=== PATIENT | male | born 1940 | race Caucasian/White ===

== ENCOUNTER 2017-08-05 09:30 | Inpatient (IN) ==
--- NOTE | 2017-08-05 09:39 | Emergency Department Note ---
Disposition Referrals: Abdiel Larsen DO [Primary Care Provider] - SOB HPI - General Chief Complaint: ED Shortness of Breath/Dyspnea Stated Complaint: Shortness of Breath Time Seen by Provider: 08/05/17 09:35 Source: patient Limitations: no limitations Nursing Notes Reviewed: Yes Vital Signs Reviewed: Yes - Related Data Home Medications Medication Instructions Recorded Confirmed Aspirin 81 mg PO DAILY 02/25/16 05/21/16 FLUoxetine HCl [Prozac] 40 mg PO QAM 02/25/16 05/21/16 Gabapentin [Neurontin] 800 mg PO BID 02/25/16 05/21/16 HYDROcodone/Acet 10/325 mg [[place] 1 tab PO Q6HR PRN 02/25/16 05/21/16 10-325 mg] Iron Polysaccharide Complex [Pro 180 mg PO DAILY 02/25/16 05/21/16 Fe] Metformin HCl [Glucophage] 1,000 mg PO BID 02/25/16 05/21/16 Pravastatin Sodium [Pravachol] 80 mg PO QPM 02/25/16 05/21/16 Ticagrelor [Brilinta] 90 mg PO BID 02/25/16 05/21/16 Vit C/Vit E AC/Lut/Copper/Zinc 1 cap PO DAILY 02/25/16 05/21/16 [Preservision Lutein Softgel] Previous Rx's Medication Instructions Recorded Ramipril [Altace] 10 mg PO BID #60 capsule 05/22/16 Allergies Allergy/AdvReac Type Severity Reaction Status Date / Time Sulfa (Sulfonamide AdvReac Hives Verified 05/21/16 12:03 Antibiotics) IV Dye AdvReac Seizure Uncoded 05/21/16 12:03 Past Medical History - Past Medical History Medical history: Reports: cancer, coronary artery disease, diabetes, GERD, hyperlipidemia, hypertension, myocardial infarction Surgical history: Reports: herniorrhaphy, other Psychiatric history: Reports: anxiety, depression - Social History Smoking Status: Former smoker Smokeless Tobacco Status: No Alcohol use: Reports: none Drug use: Reports: none Physical Exam - General Limitations: no limitations General appearance: alert Course Vital Signs Temperature 97.9 F 08/05/17 09:31 Pulse Rate 89 08/05/17 09:31 Respiratory Rate 18 08/05/17 09:31 Blood Pressure 174/106 02/11/18 09:31 O2 Sat by Pulse Oximetry 97 08/05/17 09:31 Temperature 97.9 F 08/05/17 09:31 Pulse Rate 89 08/05/17 09:31 Respiratory Rate 18 08/05/17 09:31 Blood Pressure 174/106 08/05/17 09:31 O2 Sat by Pulse Oximetry 97 08/05/17 09:31 Oxygen Delivery Oxygen Delivery Room Air
[2017-08-05] MEDS ORDERED: 0.9 % Sodium Chloride 1,000 ML IVC ONE ×2 (09:49→11:52)
[2017-08-05] MEDS ORDERED: *HR* OxyCODONE Immed Rel 5 MG TABLET PO ONE (09:51)
[2017-08-05 10:05] LABS: Basophils # 0.1 K/mcL (0.0-0.2); Basophils % 1.1 %; Eosinophils # 0.2 K/mcL (0.0-0.6); Eosinophils % 2.4 %; Hematocrit 38.3 % (37.5-50.1); Hemoglobin 12.6 g/dL (12.9-16.9); Immature Granulocytes % 0.3 % (0-4); Lymphocytes # 1.2 K/mcL (0.6-4.6); Lymphocytes % 18.3 %; Mean Corpuscular HGB Conc 32.9 g/dL (31.6-35.5); Mean Corpuscular Hemoglobin 29.6 pg (28.0-33.3); Mean Corpuscular Volume 89.9 fL (83.0-100.0); Mean Platelet Volume 11.1 fL (9.4-12.4); Monocytes # 0.5 K/mcL (0.0-1.3); Monocytes % 7.6 %; Neutrophils # 4.6 K/mcL (1.6-8.9); Platelet Count 229 K/mcL (140-400); Red Blood Count 4.26 M/mcL (4.19-5.50); Red Cell Distribution Width 12.9 % (11.5-14.5); Segmented Neutrophils % 70.3 %
--- NOTE | 2017-08-05 10:08 | Emergency Department Note ---
Disposition Clinical Impression: Dyspnea, unspecified, Colonic stricture, Elevated blood pressure reading Abdominal pain Qualifiers: Abdominal location: left lower quadrant Qualified Code(s): R10.32 - Left lower quadrant pain Disposition: Admitted As Inpatient Condition: Undetermined Time of Disposition: 21:59 Abdominal Pain HPI - General Chief Complaint: ED Shortness of Breath/Dyspnea Stated Complaint: Shortness of Breath Time Seen by Provider: 08/05/17 09:35 Source: patient Mode of arrival: wheelchair Limitations: no limitations Nursing Notes Reviewed: Yes Vital Signs Reviewed: Yes - History of Present Illness HPI Narrative: Mr. Ladd, a 77yo male, presents from home for evaluation of left lower quadrant abdominal pain with shortness of breath. Onset last night at 10pm. Described as a constant cramping sensation. Non-radiating. He has associated bloating sensation, is passing increased flatus, and has shortness of breath. Dyspnea improved with standing, worse with deep inspiration. On deep inspiration, he has a substernal burning sensation. No hx abdominal surgery. Cardiac hx: stent x4. Last stent/cath appx 2-3 yrs ago. HTN, HLD, DM, hx smoking - quit 2 yrs ago. Seed Expert: name unknown to patient, @ [facility]. ROS: Pos: as above Neg: fever, chills, nausea, vomiting, constipation, diarrhea, hematochezia, melena. Pain Scale: 5 - Related Data Home Medications Medication Instructions Recorded Confirmed Aspirin 81 mg PO DAILY 02/25/16 08/05/17 FLUoxetine HCl [Prozac] 40 mg PO QAM 02/25/16 08/05/17 Gabapentin [Neurontin] 800 mg PO BID 02/25/16 08/05/17 HYDROcodone/Acet 10/325 mg [[place] 1 tab PO Q6HR PRN 02/25/16 08/05/17 10-325 mg] Iron Polysaccharide Complex [Pro 180 mg PO DAILY 02/25/16 08/05/17 Fe] Metformin HCl [Glucophage] 1,000 mg PO BID 02/25/16 08/05/17 Pravastatin Sodium [Pravachol] 80 mg PO QPM 02/25/16 08/05/17 Ticagrelor [Brilinta] 90 mg PO BID 02/25/16 08/05/17 Vit C/Vit E AC/Lut/Copper/Zinc 1 cap PO DAILY 02/25/16 08/05/17 [Preservision Lutein Softgel] Bupropion HCl [Wellbutrin Xl] 300 mg PO DAILY 08/05/17 08/05/17 Previous Rx's Medication Instructions Recorded Ramipril [Altace] 10 mg PO BID #60 capsule 05/22/16 Allergies Allergy/AdvReac Type Severity Reaction Status Date / Time Sulfa (Sulfonamide AdvReac Hives Verified 05/21/16 12:03 Antibiotics) IV Dye AdvReac Seizure Uncoded 05/21/16 12:03 All systems ED: reviewed and negative except as stated. Review of Systems: As Per HPI Abdominal Pain PMH - Past Medical History Medical history: Reports: cancer, coronary artery disease, diabetes, GERD, hyperlipidemia, hypertension, myocardial infarction Psychiatric history: Reports: anxiety, depression - Social History Smoking status: Former smoker Alcohol use: Reports: none Drug use: Reports: none Physical Exam Vital Signs Reviewed General: Patient is alert, oriented, and in mild distress-prefers standing position to seated or reclined. Head: atraumatic, normocephalic Eye: normal appearance, PERRL, EOMI, no scleral icterus, no conjunctival injection ENT: mucous membranes moist, normal external ear exam Neck: normal inspection, trachea midline, full ROM Chest: normal inspection, symmetric chest rise Respiratory: Good respiratory effort. Bilateral breath sounds are clear without wheezing, crackles, or rhonchi. Cardiovascular: Regular rate and rhythm. No clicks, rubs, gallops, or murmors. Normal heart sounds. Abdomen: Bowel sounds present, hyperactive, high pitched. Abdomen is soft, distended. Left side abdominal tenderness. No guarding or rebound. Musculoskeletal: Spontaneously moving all extremities. Skin: warm, dry, intact. Neuro: Alert and oriented x4. Sensation light touch intact. Psych: Patient's affect is appropriate for situation. - General Limitations: no limitations General appearance: alert Course Course Narrative: Patient's abdomen is distended with high-pitched bowel sounds. He is passing gas. Believe his abdominal distention is causing dyspnea unless standing. Will perform chest pain and abdominal workup. Patient does have only shown blood pressure on intake. Is no focal neurologic deficits, no headache. EKG shows no acute ischemic changes. Initial troponin is less than upper limit of normal. Chest x-ray shows no cardiopulmonary disease per radiology read. Urinalysis is unremarkable. No evidence of end organ damage. Patient has no leukocytosis and is afebrile intake. Very mild hyponatremia otherwise electrolytes are unremarkable. Normal renal function. No elevation in hepatic, biliary, or pancreatic enzymes. Patient has no elevation in lactic acid. CT abdomen and pelvis show focal colonic stricture likely causing his colonic distention. No small bowel obstruction. I discussed the above with the admitting hospitalist who agrees to accept the patient for further evaluation and management with consult to gastroenterology. Abdomen/Pelvis CT 08/05/17 09:50 IMPRESSION: 1. No radiographic findings to suggest presence of significant small bowel obstruction. 2. Focal area of luminal narrowing of the distal colon in the rectosigmoid region. Finding may be artifactual associated with incomplete distention of the colon however a focal stricture in this region resulting in moderate-marked distention of the colon proximal to this area cannot be excluded based on this examination. I PICC enema may be helpful for more complete evaluation. 3. Prominent fecal loading of the rectal vault. 4. Nonspecific moderate gaseous distention of the stomach as described above. D/ / 08/05/2017 11:57:21 Eren Osullivan MD / joe Interpreting Provider: Eren Osullivan MD Chest X-Ray 08/05/17 11:14 IMPRESSION: 1. No acute cardiopulmonary disease. 2. Basilar atelectasis. D/ / 08/05/2017 12:29:20 Kimberley Dias MD / reji Interpreting Provider: Kimberley Dias MD Vital Signs Temperature 97.9 F 08/05/17 09:31 Pulse Rate 89 08/05/17 09:31 Respiratory Rate 18 08/05/17 09:31 Blood Pressure 174/106 08/05/17 09:31 O2 Sat by Pulse Oximetry 97 08/05/17 09:31 Temperature 97.5 F L 08/05/17 19:48 Pulse Rate 76 08/05/17 19:48 Respiratory Rate 16 08/05/17 19:48 Blood Pressure 175/89 08/05/17 19:48 O2 Sat by Pulse Oximetry 95 08/05/17 19:48 Oxygen Delivery Oxygen Delivery Room Air Abdominal Pain - Medical Records Medical records reviewed: Yes I reviewed the patient's medical records. - Lab Data Lab results reviewed: Yes I reviewed the patient's lab results. Result diagrams: 08/05/17 09:57 08/05/17 09:57 Lab Results 08/05/17 08/05/17 08/05/17 Range/Units 09:57 09:57 09:57 WBC 6.6 (4.3-11.1) K/mcL RBC 4.26 (4.19-5.50) M/mcL Hgb 12.6 L (12.9-16.9) g/dL Hct 38.3 (37.5-50.1) % MCV 89.9 (83.0-100.0) fL MCH 29.6 (28.0-33.3) pg MCHC 32.9 (31.6-35.5) g/dL RDW 12.9 (11.5-14.5) % Plt Count 229 (140-400) K/mcL MPV 11.1 (9.4-12.4) fL Immature Gran % 0.3 (0-4) % Seg Neutrophils % 70.3 % Lymphocytes % 18.3 % Monocytes % 7.6 % Eosinophils % 2.4 % Basophils % 1.1 % Neutrophils # 4.6 (1.6-8.9) K/mcL Lymphocytes # 1.2 (0.6-4.6) K/mcL Monocytes # 0.5 (0.0-1.3) K/mcL Eosinophils # 0.2 (0.0-0.6) K/mcL Basophils # 0.1 (0.0-0.2) K/mcL Sodium 135 L (136-145) mEq/L Potassium 4.4 (3.5-5.1) mEq/L Chloride 101 (98-107) mEq/L Carbon Dioxide 25 (23-29) mEq/L BUN 18 (8-23) mg/dL Creatinine 0.84 (0.70-1.30) mg/dL Est GFR ( Amer) > 60 (> 60) Est GFR (Non-Af Amer) > 60 (> 60) BUN/Creatinine Ratio 21 (6-26) Glucose 240 H (70-105) mg/dL Calculated Osmolality 290 (280-300) Lactic Acid 2.7 H (0.5-2.2) mmol/L Calcium 10.5 H (8.6-10.3) mg/dL Total Bilirubin 0.3 (0.3-1.0) mg/dL Direct Bilirubin 0.0 (0.0-0.2) mg/dL Indirect Bilirubin 0.3 (0.0-1.2) mg/dL AST 21 (13-39) Units/L ALT 30 (7-52) Units/L Alkaline Phosphatase 73 (34-104) Units/L Troponin I (< 0.04) ng/mL Serum Total Protein 7.1 (6.4-8.9) g/dL Albumin 4.4 (3.5-5.7) g/dL Globulin 2.7 (2.4-3.5) g/dL Albumin/Globulin Ratio 1.6 (1.1-2.2) Lipase 31 (11-82) Units/L Urine Color (Yellow) Urine Clarity (Clear) Urine pH (5.0-8.0) pH Units Ur Specific [place] (1.010-1.025) Urine Protein (Neg-Trace) mg/dL Urine Glucose (UA) (Normal) mg/dL Urine Ketones (Negative) mg/dL Urine Blood (Negative) Urine Nitrite (Negative) Urine Bilirubin (Negative) Urine Urobilinogen (Normal) mg/dL Ur Leukocyte Esterase (Negative) Ur Culture Indicated? (NO) 08/05/17 08/05/17 Range/Units 09:57 11:04 WBC (4.3-11.1) K/mcL RBC (4.19-5.50) M/mcL Hgb (12.9-16.9) g/dL Hct (37.5-50.1) % MCV (83.0-100.0) fL MCH (28.0-33.3) pg MCHC (31.6-35.5) g/dL RDW (11.5-14.5) % Plt Count (140-400) K/mcL MPV (9.4-12.4) fL Immature Gran % (0-4) % Seg Neutrophils % % Lymphocytes % % Monocytes % % Eosinophils % % Basophils % % Neutrophils # (1.6-8.9) K/mcL Lymphocytes # (0.6-4.6) K/mcL Monocytes # (0.0-1.3) K/mcL Eosinophils # (0.0-0.6) K/mcL Basophils # (0.0-0.2) K/mcL Sodium (136-145) mEq/L Potassium (3.5-5.1) mEq/L Chloride (98-107) mEq/L Carbon Dioxide (23-29) mEq/L BUN (8-23) mg/dL Creatinine (0.70-1.30) mg/dL Est GFR ( Amer) (> 60) Est GFR (Non-Af Amer) (> 60) BUN/Creatinine Ratio (6-26) Glucose (70-105) mg/dL Calculated Osmolality (280-300) Lactic Acid (0.5-2.2) mmol/L Calcium (8.6-10.3) mg/dL Total Bilirubin (0.3-1.0) mg/dL Direct Bilirubin (0.0-0.2) mg/dL Indirect Bilirubin (0.0-1.2) mg/dL AST (13-39) Units/L ALT (7-52) Units/L Alkaline Phosphatase (34-104) Units/L Troponin I < 0.03 (< 0.04) ng/mL Serum Total Protein (6.4-8.9) g/dL Albumin (3.5-5.7) g/dL Globulin (2.4-3.5) g/dL Albumin/Globulin Ratio (1.1-2.2) Lipase (11-82) Units/L Urine Color Yellow (Yellow) Urine Clarity Clear (Clear) Urine pH 7.0 (5.0-8.0) pH Units Ur Specific [place] 1.020 (1.010-1.025) Urine Protein Negative (Neg-Trace) mg/dL Urine Glucose (UA) 100 H (Normal) mg/dL Urine Ketones Negative (Negative) mg/dL Urine Blood Negative (Negative) Urine Nitrite Negative (Negative) Urine Bilirubin Negative (Negative) Urine Urobilinogen Normal (Normal) mg/dL Ur Leukocyte Esterase Negative (Negative) Ur Culture Indicated? NO (NO) - Radiology Data Radiology results reviewed: Yes I reviewed the patient's radiology results. - EKG Data EKG attestation: Yes I reviewed and interpreted this EKG. EKG results narrative: EKG dated 08/05/17 at 09:54 interpreted as sinus rhythm with rate of 77. Respiratory variation. Normal axis. Nonspecific ST-T changes. Compared to previous dated 05/17/2016 showing no acute ischemic changes or comparison. Attestation Statement - Attestation Attestation: I examined this patient and my medical decision-making was reviewed with the Resident Physician, Dr. Merino. I agree with the documented findings, disposition and treatment plan as described except to the extent set forth below. This pleasant 77-year-old white male who presents to the emergency department with a few complaints today. Patient states he has been feeling short of breath for the past 2-3 days worse with exertion. Patient denies any fevers or chills, no upper respiratory symptoms sore throat or cough, no lower extremity edema, no chest pain pressure or heaviness. Patient states that he is also here for gradually worsening left lower quadrant abdominal pain that began last night. Patient states the pain is very sharp in character and is been waxing and waning in severity but consistently in the left lower quadrant area. Patient denies any nausea or vomiting associated with this pain, no flank pain or urinary symptoms, no groin pain or testicular pain. Patient's not had any fevers or chills or any other associated symptoms with this pain. Patient rates the pain on arrival at an 8 out of 10 in severity. I agree with patient's physical exam findings as documented. Patient with elevated blood pressure on arrival. Patient's EKG does not show any acute ischemia today is normal sinus rhythm unchanged from prior EKG. Patient's lab evaluations within normal limits including troponin. Patient went for CT abdomen and pelvis without contrast which shows findings of a new colonic stricture in the distal colon with evidence of constipation beyond the stricture. Patient's chest x-ray is unremarkable. At this time would like to admit the patient for further evaluation of 1. His abdominal pain and new colonic stricture and be seen by GI. #2 considering his extensive coronary artery disease and symptoms of dyspnea we feel he would benefit from serial enzymes and ongoing observation. Case was discussed with the hospitalist who accepted patient for admission for further evaluation and management.
[2017-08-05 10:20] LABS: Alanine Aminotransferase 30 Units/L (7-52); Albumin 4.4 g/dL (3.5-5.7); Albumin/Globulin Ratio 1.6 (1.1-2.2); Alkaline Phosphatase 73 Units/L (34-104); Aspartate Amino Transferase 21 Units/L (13-39); BUN/Creatinine Ratio 21 (6-26); Bilirubin,Indirect 0.3 mg/dL (0.0-1.2); Bilirubin,Total 0.3 mg/dL (0.3-1.0); Blood Urea Nitrogen 18 mg/dL (8-23); Calcium 10.5 mg/dL (8.6-10.3); Carbon Dioxide 25 mEq/L (23-29); Chloride 101 mEq/L (98-107); Globulin 2.7 g/dL (2.4-3.5); Glucose 240 mg/dL (70-105); Lipase 31 Units/L (11-82); Osmolality,Calculated 290 (280-300); Potassium 4.4 mEq/L (3.5-5.1); Sodium 135 mEq/L (136-145); Total Protein 7.1 g/dL (6.4-8.9); eGFR For African Americans > 60 (> 60); eGFR For Non-African Americans > 60 (> 60)
[2017-08-05 11:14] LABS: Bilirubin,Urine Negative (Negative); Blood,Urine Negative (Negative); Clarity,Urine Clear (Clear); Color,Urine Yellow (Yellow); Glucose,Urine (UA) 100 mg/dL (Normal); Ketones,Urine Negative (Negative); Leukocyte Esterase,Urine Negative (Negative); Nitrite,Urine Negative (Negative); Protein,Urine Negative (Neg-Trace); Urobilinogen,Urine Normal (Normal)
[2017-08-05] MEDS ORDERED: Dextrose Gel 15 GM/37.5 ML TUBE PO PRN ×2 (13:29)
[2017-08-05] MEDS ORDERED: *HR* Dextrose 50 % in Water (Syg) 50 ML SYRINGE IVP PRN (13:29)
[2017-08-05] MEDS ORDERED: D5% in Water 1,000 ML IVC PRN (13:29)
[2017-08-05] MEDS ORDERED: Ketorolac 15 MG/ML VIAL IVP PRN (13:35)
--- NOTE | 2017-08-05 13:48 | Internal Med History&Physical ---
Date of Encounter: 08/05/17 Time of Encounter: 12:55 Assessment and Plan (1) SOB (shortness of breath) on exertion Current visit: Yes Status: Acute 2-3 weeks of SOB and orthopnea. He has CAD s/p stents and states this is how he presented prior to stents (no chest pain). Supplemental O2 as needed CXR clear No wheezing, cough or pulm. vasc. congestion Trend Zainab Continue telemety (2) CAD (coronary artery disease) Current visit: No Status: Chronic Trend CE First Troponin wnl No ischemic changes on ECG Telemetry Continue aspirin and Brillinta Qualifiers: Coronary Disease-Associated Artery/Lesion type: [place] artery [place] vs. transplanted heart: [place] heart Associated angina: without angina Qualified Code(s): I25.10 - Atherosclerotic heart disease of [place] coronary artery without angina pectoris (3) Abdominal pain Current visit: Yes Status: Acute LLQ pain correlates with area on CT-Abd/Pelvis study showing narrowing Consulted GI for scope (Tried to call but no consults on wkend...needs called in am) Keep NPO Fentanyl and Toradol for pain C Qualifiers: Abdominal location: left lower quadrant Qualified Code(s): R10.32 - Left lower quadrant pain (4) Diabetes mellitus Current visit: No Status: Chronic Hold Metformin and start LD-SSI with Humalog Qualifiers: Diabetes mellitus type: type 2 Diabetes mellitus complication status: without complication Diabetes mellitus terminal press operator insulin use: without terminal press operator use Qualified Code(s): E11.9 - Type 2 diabetes mellitus without complications Internal Medicine - H&P: HPI Chief complaint: LLQ abdominal pain and SOB Admitted From: Emergency Dept Plans for Post Hospital Care: Home History of present illness: 77yo male ptient who presented in the ER c/o LLQ abdominal pain which began last evening. He also c/o worsening orthopnia and sob with exertion for approximately 2-3 weeks. He denies cough, F/C, chest pain or pressure. He has CAD s/p stents and states that when his stents were placed he experienced similar sob and orthopnea but not chest pain. His ECG does not show ischemic changes and his initial troponin is wnl. His CXR does not show infiltrates or pleural, effusions or signs of CHF. However he does have bibasilar atelectasis. His CT-Abd/Pelvis study done without IV or oral contrast showes a narrowing of the distal bowel near the rectosigmoid junction without signs of obvious obst. There is distention of the bowel proximal to the narrowing. Since the study was done w/o contrast (oral or IV0 artifact can not be r/o. His symptoms correlate with the area of narrowing. He moved his bowels this am and again in the ER. His LA is elevated (2.7) but his sx do not raise concern for ischemic bowel. He has no peritoneal signs on exam but his BS are decreased and high pitched. He's hemodynamically stable and afebrile with a normal WBC. f Past Med Surg Social Fam HX - Past Medical History Medical history: cancer, coronary artery disease, diabetes, GERD, hyperlipidemia , hypertension, myocardial infarction Psychiatric history: anxiety, depression - Past Surgical History Surgical History: herniorrhaphy, other - Social History Smoking Status: Former smoker Smokeless Tobacco Status: No Alcohol use: none Drug use: none - Family History Father Living Status: Hx Family Cardiac Disorders: Yes ([place]) Internal Medicine - H&P: Meds Aspirin 81 mg PO DAILY 02/25/16 [History] FLUoxetine HCl [Prozac] 40 mg PO QAM 02/25/16 [History] Gabapentin [Neurontin] 800 mg PO BID 02/25/16 [History] HYDROcodone/Acet 10/325 mg [[place] 10-325 mg] 1 tab PO Q6HR PRN 02/25/16 [History ] Iron Polysaccharide Complex [Pro Fe] 180 mg PO DAILY 02/25/16 [History] Metformin HCl [Glucophage] 1,000 mg PO BID 02/25/16 [History] Pravastatin Sodium [Pravachol] 80 mg PO QPM 02/25/16 [History] Ticagrelor [Brilinta] 90 mg PO BID 02/25/16 [History] Vit C/Vit E AC/Lut/Copper/Zinc [Preservision Lutein Softgel] 1 cap PO DAILY 08/10 [History] Ramipril [Altace] 10 mg PO BID #60 capsule 05/22/16 [Rx] Bupropion HCl [Wellbutrin Xl] 300 mg PO DAILY 08/05/17 [History] 3 Allergy/AdvReac Type Severity Reaction Status Date / Time Sulfa (Sulfonamide AdvReac Hives Verified 05/21/16 12:03 Antibiotics) IV Dye AdvReac Seizure Uncoded 05/21/16 12:03 All Systems PM: A 10-system review of systems was performed and is negative for pertinent findings except as documented above in the HPI. - Constitutional Constitutional: no chills, no fever(s), no night sweats, no weakness, no weight gain, no weight loss - EENT Nose, mouth and throat: no dry mouth, no dysphagia, no epistaxis, no facial pain - Cardiovascular Cardiovascular ROS IM: dyspnea, dyspnea on exertion, orthopnea, paroxysmal nocturnal dyspnea, no chest pain, no diaphoresis, no syncope - Musculoskeletal Musculoskeletal ROS IM: no atrophy, no back pain, no joint swelling, no muscle cramps, no stiffness - Integumentary Integumentary IM: no erythema, no rash, no skin ulcer, no unusual bruising, no jaundice - Neurological Neurological ROS: burning sensations, disequilibrium, dizziness - Psychiatric Psychiatric: no anxiety, no auditory hallucinations, no behavioral changes, no homicidal ideation, no suicidal ideation, no visual hallucinations - Endocrine Endocrine IM: no cold intolerance, no polydipsia, no polyphagia, no polyuria - Hematologic/Lymphatic Hematologic/Lymphatic: no easy bruising - Allergic/Immunologic Allergic/Immunologic: seasonal rhinorrhea, no tongue swelling, no lip swelling - Constitutional Vitals: Temp Pulse Resp BP Pulse Ox 97.9 F 77 18 174/93 95 08/05/17 09:31 08/05/17 09:53 08/05/17 09:53 08/05/17 09:53 08/05/17 09:53 General appearance: Present: mild distress, A&O X 3, answers questions appropriately. Absent: disheveled, obese, underweight, loss of weight - Head Head exam: Present: atraumatic, normocephalic - Eye Eye exam: Present: conjuntiva pink, sclera anicteric. Absent: scleral icterus Pupils: Present: PERRL. Absent: unequal - Neck Neck exam general surgery: Present: supple, trachea midline. Absent: lymphadenopathy, nuchal rigidity, thyromegaly - Respiratory Respiratory exam: Present: CTAB. Absent: chest wall tenderness, respiratory distress - Cardiovascular Cardiovascular exam: Present: RRR, +S1, +S3 - GI/Abdominal GI/Abdominal exam: Present: hypoactive bowel sounds, soft, no peritoneal signs. Absent: bruit, diminished bowel sounds, firm, guarding, normal bowel sounds, rebound, rigid, splenomegaly - Neurological Exam Neurological exam: Present: CN II-XII intact, oriented X3. Absent: no focal deficits, pronater drift, facial droop, speech deficit Internal Med - H&P Results - Labs CBC & Chem 7: 08/05/17 09:57 08/05/17 09:57 Labs: Short CBC 08/05/17 Range/Units 09:57 WBC 6.6 (4.3-11.1) K/mcL Hgb 12.6 L (12.9-16.9) g/dL Hct 38.3 (37.5-50.1) % Plt Count 229 (140-400) K/mcL Neutrophils # 4.6 (1.6-8.9) K/mcL BMP 08/05/17 09:57 Sodium 135 L Potassium 4.4 Chloride 101 Carbon Dioxide 25 BUN 18 Creatinine 0.84 Glucose 240 H Calcium 10.5 H Cardiac Enzymes 08/05/17 Range/Units 09:57 Troponin I < 0.03 (< 0.04) ng/mL Liver Function 08/05/17 Range/Units 09:57 Total Bilirubin 0.3 (0.3-1.0) mg/dL Direct Bilirubin 0.0 (0.0-0.2) mg/dL AST 21 (13-39) Units/L ALT 30 (7-52) Units/L Alkaline Phosphatase 73 (34-104) Units/L Albumin 4.4 (3.5-5.7) g/dL Urine 08/05/17 Range/Units 11:04 Urine Color Yellow (Yellow) Urine Clarity Clear (Clear) Urine pH 7.0 (5.0-8.0) pH Units Ur Specific [place] 1.020 (1.010-1.025) Urine Protein Negative (Neg-Trace) mg/dL Urine Glucose (UA) 100 H (Normal) mg/dL - Impressions ITS Impressions Abdomen/Pelvis CT 08/05/17 09:50 IMPRESSION: 1. No radiographic findings to suggest presence of significant small bowel obstruction. 2. Focal area of luminal narrowing of the distal colon in the rectosigmoid region. Finding may be artifactual associated with incomplete distention of the colon however a focal stricture in this region resulting in moderate-marked distention of the colon proximal to this area cannot be excluded based on this examination. I PICC enema may be helpful for more complete evaluation. 3. Prominent fecal loading of the rectal vault. 4. Nonspecific moderate gaseous distention of the stomach as described above. D/ / 08/05/2017 11:57:21 Eren Osullivan MD / joe Interpreting Provider: Eren Osullivan MD Chest X-Ray 08/05/17 11:14 IMPRESSION: 1. No acute cardiopulmonary disease. 2. Basilar atelectasis. D/ / 08/05/2017 12:29:20 Kimberley Dias MD / reji Interpreting Provider: Kimberley Dias MD
[2017-08-05] MEDS: *HR* HYDROcodone/Acet 10/325 mg TABLET PO PRN ×2 (16:26→22:40)
[2017-08-05] MEDS: Insulin LISPRO 300 UNITS/3 ML VIAL SQ SCH (16:27)
[2017-08-05] MEDS: *HR* Ticagrelor 90 MG TABLET PO SCH (20:52)
[2017-08-05] MEDS: Gabapentin 400 MG CAPSULE PO SCH (20:52)
[2017-08-05] MEDS: Lisinopril 20 MG TABLET PO SCH (20:52)
[2017-08-05] MEDS: Simethicone 80 MG TAB.CHEW PO PRN (23:02)
[2017-08-06 02:08] LABS: Basophils # 0.1 K/mcL (0.0-0.2); Basophils % 0.6 %; Eosinophils # 0.2 K/mcL (0.0-0.6); Eosinophils % 2.1 %; Hemoglobin 13.1 g/dL (12.9-16.9); Immature Granulocytes % 0.2 % (0-4); Lymphocytes # 1.7 K/mcL (0.6-4.6); Mean Corpuscular HGB Conc 33.6 g/dL (31.6-35.5); Mean Corpuscular Volume 89.2 fL (83.0-100.0); Mean Platelet Volume 11.3 fL (9.4-12.4); Monocytes # 0.6 K/mcL (0.0-1.3); Monocytes % 6.9 %; Neutrophils # 5.6 K/mcL (1.6-8.9); Platelet Count 258 K/mcL (140-400); Red Blood Count 4.37 M/mcL (4.19-5.50); Red Cell Distribution Width 12.9 % (11.5-14.5); Segmented Neutrophils % 69.2 %
[2017-08-06 02:13] LABS: Prothrombin Time 11.1 Seconds (9.4-12.1)
[2017-08-06 02:16] LABS: Activated Partial Thrombo Time 26.7 Seconds (26.0-36.0)
[2017-08-06 02:24] LABS: BUN/Creatinine Ratio 15 (6-26); Blood Urea Nitrogen 14 mg/dL (8-23); Carbon Dioxide 24 mEq/L (23-29); Chloride 102 mEq/L (98-107); Glucose 201 mg/dL (70-105); Osmolality,Calculated 288 (280-300); Potassium 4.3 mEq/L (3.5-5.1); Sodium 136 mEq/L (136-145); eGFR For African Americans > 60 (> 60); eGFR For Non-African Americans > 60 (> 60)
[2017-08-06] MEDS: Simethicone 80 MG TAB.CHEW PO PRN ×3 (04:39→21:21)
[2017-08-06] MEDS: *HR* HYDROcodone/Acet 10/325 mg TABLET PO PRN ×3 (04:40→21:21)
[2017-08-06] MEDS: Iron Polysaccharide Complex 150 MG CAPSULE PO SCH (09:06)
[2017-08-06] MEDS: Insulin LISPRO 300 UNITS/3 ML VIAL SQ SCH ×3 (09:06→18:39)
[2017-08-06] MEDS: Lisinopril 20 MG TABLET PO SCH ×2 (09:06→21:17)
[2017-08-06] MEDS: Vitamin B Complex/Vit C/Vit E 1 EACH TABLET PO SCH (09:06)
[2017-08-06] MEDS: Gabapentin 400 MG CAPSULE PO SCH ×2 (09:06→21:17)
[2017-08-06] MEDS: FLUoxetine 20 MG CAPSULE PO SCH (09:06)
[2017-08-06] MEDS: *HR* Ticagrelor 90 MG TABLET PO SCH ×2 (09:07→21:17)
[2017-08-06] MEDS: BuPROPion XL (24 HR) 150 MG TABLET PO SCH (09:07)
[2017-08-06] MEDS: Aspirin 81 MG TAB.CHEW PO SCH (09:07)
--- NOTE | 2017-08-06 12:30 | Internal Med Progress Note ---
Date of Encounter: 08/06/17 Time of Encounter: 09:55 - Assessment and plan (1) SOB (shortness of breath) on exertion Current Visit: Yes Status: Acute (2) CAD (coronary artery disease) Current Visit: No Status: Chronic Qualifiers: Coronary Disease-Associated Artery/Lesion type: [place] artery [place] vs. transplanted heart: [place] heart Associated angina: without angina Qualified Code(s): I25.10 - Atherosclerotic heart disease of [place] coronary artery without angina pectoris (3) Abdominal pain Current Visit: Yes Status: Acute Qualifiers: Abdominal location: left lower quadrant Qualified Code(s): R10.32 - Left lower quadrant pain (4) Diabetes mellitus Current Visit: No Status: Chronic Qualifiers: Diabetes mellitus type: type 2 Diabetes mellitus complication status: without complication Diabetes mellitus snf insulin use: without termite control technician use Qualified Code(s): E11.9 - Type 2 diabetes mellitus without complications - Subjective Interval history: 77yo male ptient who presented in the ER c/o LLQ abdominal pain which began last evening. He also c/o worsening orthopnia and sob with exertion for approximately 2-3 weeks. He denies cough, F/C, chest pain or pressure. He has CAD s/p stents and states that when his stents were placed he experienced similar sob and orthopnea but not chest pain. His ECG does not show ischemic changes and his initial troponin is wnl. His CXR does not show infiltrates or pleural, effusions or signs of CHF. However he does have bibasilar atelectasis. His CT-Abd/Pelvis study done without IV or oral contrast showes a narrowing of the distal bowel near the rectosigmoid junction without signs of obvious obst. There is distention of the bowel proximal to the narrowing. Since the study was done w/o contrast (oral or IV0 artifact can not be r/o. His symptoms correlate with the area of narrowing. He moved his bowels this am and again in the ER. His LA is elevated (2.7) but his sx do not raise concern for ischemic bowel. He has no peritoneal signs on exam but his BS are decreased and high pitched. He's hemodynamically stable and afebrile with a normal WBC. Assessment and Plan SOB (shortness of breath) on exertion Improved today. 2-3 weeks of SOB and orthopnea. He has CAD s/p stents and states this is how he presented prior to stents (no chest pain). Trp x 3 neg. Supplemental O2 as needed CXR clear No wheezing, cough or pulm. vasc. congestion CAD (coronary artery disease) Troponins neg x3 No ischemic changes on ECG Telemetry Continue aspirin and Brillinta Abdominal pain LLQ pain correlates with area on CT-Abd/Pelvis study showing narrowing Consulted GI for scope Keep NPO Fentanyl and Toradol for pain Diabetes mellitus Hold Metformin and start LD-SSI with Humalog while NPO - Constitutional Vitals: Temp Pulse Resp BP Pulse Ox 97.4 F L 77 20 149/83 95 08/06/17 12:23 08/06/17 12:23 08/06/17 12:23 08/06/17 12:23 08/06/17 12:23 General appearance: Present: mild distress, A&O X 3, answers questions appropriately. Absent: disheveled, obese, underweight, loss of weight - Head Head exam: Present: atraumatic, normocephalic - Eye Eye exam: Present: PERRL, conjuntiva pink, sclera anicteric Pupils: Present: PERRL - Neck Neck exam general surgery: Present: supple, trachea midline. Absent: lymphadenopathy - Respiratory Respiratory exam: Present: CTAB. Absent: accessory muscle use, rales, rhonchi, wheezes - Cardiovascular Cardiovascular exam: Present: RRR, +S1, +S2. Absent: diastolic murmur, gallop, rubs, systolic murmur - GI/Abdominal GI/Abdominal exam: Present: normal bowel sounds, soft, no peritoneal signs. Absent: distended, tenderness - Extremities Exam Extremities exam: Present: warm, radial pulses palpable and symmetrical. Absent : calf tenderness, cyanotic, pedal edema - Neurological Exam Neurological exam: Present: CN II-XII intact, oriented X3, no focal deficits. Absent: pronater drift, facial droop, speech deficit - Skin Skin exam: Present: dry, intact Internal Medicine: Result - Labs CBC & Chem 7: 08/06/17 01:44 08/06/17 01:44 Labs: Short CBC 08/06/17 Range/Units 01:44 WBC 8.1 (4.3-11.1) K/mcL Hgb 13.1 (12.9-16.9) g/dL Hct 39.0 (37.5-50.1) % Plt Count 258 (140-400) K/mcL Neutrophils # 5.6 (1.6-8.9) K/mcL BMP 08/06/17 01:44 Sodium 136 Potassium 4.3 Chloride 102 Carbon Dioxide 24 BUN 14 Creatinine 0.94 Glucose 201 H Calcium 10.0 Cardiac Enzymes 08/05/17 08/06/17 Range/Units 14:24 01:44 Troponin I < 0.03 < 0.03 (< 0.04) ng/mL - ABG Interpretation ABG results: PT/INR, D-dimer PT 11.1 Seconds (9.4-12.1) 08/06/17 01:44 Consult Discharge Plan - Plan Referrals: Abdiel Larsen DO [Primary Care Provider] -
[2017-08-06] MEDS ORDERED: SODIUM CHLORIDE/NAHCO3/KCL/PEG 4,000 ML SOLN.RECON PO ONE (17:19)
--- NOTE | 2017-08-06 17:20 | Electrocardiograph Report ---
[place] [id number] Test Date: 2017-08-05 Pat Name: Jakub Ladd Department: 103 Room: 3B14 Gender: M It Quality Analyst: VL : 1940 Requested By: Alvaro Merino Order Number: [id number] Reading MD: Mandeep Brooks DO Measurements Intervals [place] Rate: 77 P: 33 GA: 155 QRS: -3 QRSD: 94 T: 31 QT: 373 QTc: 405 Interpretive Statements SINUS RHYTHM WITH SINUS ARRHYTHMIA MINIMAL VOLTAGE CRITERIA FOR LVH, CONSIDER NORMAL VARIANT NONSPECIFIC T-WAVE ABNORMALITY Electronically Signed On 08-06-2017 17:18:48 EST by Mandeep Brooks DO
--- NOTE | 2017-08-06 17:21 | Gastroenterology Consult Note ---
<Bibi Montero - Last Filed: 08/06/17 17:18> Date of Encounter: 08/06/17 Time of Encounter: 11:50 - Assessment and plan (1) Abnormal CT of the abdomen Current Visit: Yes Status: Acute Assessment and plan: CT shows narrowing of rectosigmoid area will plan for colonoscopy tomorrow to rule out sricture or mass in the colon. (2) Melena Current Visit: Yes Status: Acute Assessment and plan: Pt reports tarry stools for the past 2 weeks. Will schedule for EGD tomorrow. (3) Abdominal pain Current Visit: Yes Status: Acute Assessment and plan: Pt c/o LLQ pain, CT shows narrowing of the colon. Qualifiers: Abdominal location: left lower quadrant Qualified Code(s): R10.32 - Left lower quadrant pain - Time Spent With Patient Total time spent is greater than 50% in coordination of care (as documented) at patient's floor/unit and/or counseling patient: GI History of Present Illness - Data of Consult Patient: new to practice Consult date: 08/06/17 Requesting Physician: Brooklyn Santoro CNP - Consult Narrative Reason for consult: abnormal CT abdomen History of present illness: Mr. Ladd is a 77 year old male with a PMHX of CAD, CHF, diverticulosis. He presented in the ER c/o LLQ abdominal pain which began last evening. He also reported worsening orthopnea and sob with exertion for approximately 2-3 weeks. He denies cough, F/C, chest pain or pressure. He has CAD s/p 4 stents approximately [address]-Abd/Pelvis study done without IV or oral contrast showes a narrowing of the distal bowel near the rectosigmoid junction without signs of obvious obst. There is distention of the bowel proximal to the narrowing. He reports LLQ pain, nausea, and tarry stools for the past couple weeks. He does have GERD and states he takes advil as needed for pain. Hemoglobin 13.1, INR 1.0, LFTs normal. Colonoscopy: 03/10 diverticulosis (Dr Wooten) EGD: denies NSAIDS/ASA:asa Anticoagulants: brilinta Past Med Surg Social Fam HX - Past Medical History Medical history: cancer, coronary artery disease, diabetes, GERD, hyperlipidemia , hypertension, myocardial infarction Psychiatric history: anxiety, depression - Past Surgical History Surgical History: herniorrhaphy, other - Social History Smoking Status: Former smoker Smokeless Tobacco Status: No Alcohol use: none Drug use: none - Family History Father Living Status: Hx Family Cardiac Disorders: Yes ([place]) Review of Systems: GI: as per [place] GENERAL: denies fever, has some chills EYES: denies yellow discoloration ENT: denies pain with swallowing or difficulty swallowing CARDIO: denies chest pain, palpitations RESP: see HPI : denies change in color of urine NEURO: weakness HEME: Denies any bruising MS: occasional back and joint pain, DERM: denies rash or itching PSYCH: Denies history of anxiety or depression - Constitutional Vitals: Temp Pulse Resp BP Pulse Ox 97.5 F L 80 18 129/80 95 08/06/17 14:59 08/06/17 14:59 08/06/17 14:59 08/06/17 14:59 08/06/17 14:59 Exam: CONSTITUTIONAL:~alert, no acute distress.~HEAD:~normocephalic.~EYES:~no jaundice.~NECK:~no obvious swelling.~HEART:~regular rate and rhythm, no murmurs. ~LUNGS:~bilateral fair air entry.~ABDOMEN:~non distended, soft, tender to left upper and lower quadrants, ~RECTAL EXAM:~Deferred.~EXTREMITIES:~no clubbing, cyanosis or edema.~SKIN:~no stigmata of chronic liver disease.~NEUROLOGIC:~no obvious focal defect.~~~~ Results - Labs CBC & Chem 7: 08/06/17 01:44 08/06/17 01:44 Labs: Last Result Calcium 10.0 mg/dL (8.6-10.3) 08/06/17 01:44 Troponin I < 0.03 ng/mL (< 0.04) 08/06/17 01:44 Entire Visit Hgb 13.1 g/dL (12.9-16.9) 08/06/17 01:44 Hct 39.0 % (37.5-50.1) 08/06/17 01:44 PT 11.1 Seconds (9.4-12.1) 08/06/17 01:44 Total Bilirubin 0.3 mg/dL (0.3-1.0) 08/05/17 09:57 AST 21 Units/L (13-39) 08/05/17 09:57 ALT 30 Units/L (7-52) 08/05/17 09:57 Lipase 31 Units/L (11-82) 08/05/17 09:57 - ABG ABG results: PT/INR, D-dimer PT 11.1 Seconds (9.4-12.1) 08/06/17 01:44 Consult Discharge Plan - Plan Referrals: Abdiel Larsen DO [Primary Care Provider] - <Kalyn Partida - Last Filed: 08/06/17 22:08> Date of Encounter: 08/06/17 Time of Encounter: 16:20 - Time Spent With Patient Total time spent is greater than 50% in coordination of care (as documented) at patient's floor/unit and/or counseling patient: GI History of Present Illness - Data of Consult Requesting Physician: Brooklyn Santoro CNP - Consult Narrative History of present illness: Mr. Ladd is a 77 year old male - Constitutional Vitals: Temp Pulse Resp BP Pulse Ox 98.7 F 81 14 128/71 96 08/06/17 19:23 08/06/17 19:23 08/06/17 19:23 08/06/17 19:23 08/06/17 19:23 Results - Labs CBC & Chem 7: 08/06/17 01:44 08/06/17 01:44 Labs: Last Result Calcium 10.0 mg/dL (8.6-10.3) 08/06/17 01:44 Troponin I < 0.03 ng/mL (< 0.04) 08/06/17 01:44 Entire Visit Hgb 13.1 g/dL (12.9-16.9) 08/06/17 01:44 Hct 39.0 % (37.5-50.1) 08/06/17 01:44 PT 11.1 Seconds (9.4-12.1) 08/06/17 01:44 Total Bilirubin 0.3 mg/dL (0.3-1.0) 08/05/17 09:57 AST 21 Units/L (13-39) 08/05/17 09:57 ALT 30 Units/L (7-52) 08/05/17 09:57 Lipase 31 Units/L (11-82) 08/05/17 09:57 - ABG ABG results: PT/INR, D-dimer PT 11.1 Seconds (9.4-12.1) 08/06/17 01:44 - Attending Attestation I examined this patient and my medical decision-making was reviewed with the LABELING STRATEGIST. I agree with the documented findings, disposition and treatment plan as described except to the extent set forth below. Pt with abn imaging with poss stricture at rectosigmoid area Rec; Colon am
[2017-08-07] MEDS: *HR* HYDROcodone/Acet 10/325 mg TABLET PO PRN ×2 (05:31→15:09)
[2017-08-07] MEDS: BuPROPion XL (24 HR) 150 MG TABLET PO SCH (08:42)
[2017-08-07] MEDS: Gabapentin 400 MG CAPSULE PO SCH (08:42)
[2017-08-07] MEDS: Aspirin 81 MG TAB.CHEW PO SCH (08:42)
[2017-08-07] MEDS: FLUoxetine 20 MG CAPSULE PO SCH (08:42)
[2017-08-07] MEDS: Insulin LISPRO 300 UNITS/3 ML VIAL SQ SCH ×2 (08:42→11:43)
[2017-08-07] MEDS: Iron Polysaccharide Complex 150 MG CAPSULE PO SCH (08:42)
[2017-08-07] MEDS: *HR* Ticagrelor 90 MG TABLET PO SCH (08:42)
[2017-08-07] MEDS: Vitamin B Complex/Vit C/Vit E 1 EACH TABLET PO SCH (08:42)
[2017-08-07] MEDS: Lisinopril 20 MG TABLET PO SCH (08:42)
--- NOTE | 2017-08-07 12:42 | Anesthesia Evaluation PreOp ---
Date of Encounter: 08/07/17 Time of Encounter: 12:40 - Past History Planned Operation: EGD/Colonscopy Cardiac History: CHF, HTN, Hyperlipidemia, Cardiac Stent (stents x 4 - all > 1 year old, maintained on Brillinta, ASA), Other (Nuclear STress 2016 - Impression : Exercise ECG is negative for ischemia. The patient was hypertensive at rest, which worsened during exercise. Gated EF = 70%. Small sized, mild intensity, fixed basal inferolateral defect. Wall motion appears normal. These findings are most consistent with artifact. Perfusion imaging was negative for ischemia or prior infarct.) ORE MINER History: Other (Anxiety/depression maintained on) Other Medical History: Diabetes Type II, GERD (GIB/Melena this hospitalization) , Other (Hx of diverticulosis) Anesthesia History: No Prior Anesthetic Complications, Past Anesthesia Alcohol Use: none Drug use: none Medications and Allergies Aspirin 81 mg PO DAILY 02/25/16 [History] FLUoxetine HCl [Prozac] 40 mg PO QAM 02/25/16 [History] Gabapentin [Neurontin] 800 mg PO BID 02/25/16 [History] HYDROcodone/Acet 10/325 mg [[place] 10-325 mg] 1 tab PO Q6HR PRN 02/25/16 [History ] Iron Polysaccharide Complex [Pro Fe] 180 mg PO DAILY 02/25/16 [History] Metformin HCl [Glucophage] 1,000 mg PO BID 02/25/16 [History] Pravastatin Sodium [Pravachol] 80 mg PO QPM 02/25/16 [History] Ticagrelor [Brilinta] 90 mg PO BID 02/25/16 [History] Vit C/Vit E AC/Lut/Copper/Zinc [Preservision Lutein Softgel] 1 cap PO DAILY 08/10 [History] Ramipril [Altace] 10 mg PO BID #60 capsule 05/22/16 [Rx] Bupropion HCl [Wellbutrin Xl] 300 mg PO DAILY 08/05/17 [History] 3 Allergy/AdvReac Type Severity Reaction Status Date / Time Sulfa (Sulfonamide AdvReac Hives Verified 05/21/16 12:03 Antibiotics) IV Dye AdvReac Seizure Uncoded 05/21/16 12:03 - Meds/Allergy Pre-op Review Medications Reviewed: Yes Allergies Reviewed: Yes Beta Blockers on Current Med List: No Anesthesia Results - Labs 08/06/17 01:44 08/06/17 01:44 Laboratory Results WBC 8.1 K/mcL (4.3-11.1) 08/06/17 01:44 RBC 4.37 M/mcL (4.19-5.50) 08/06/17 01:44 Hgb 13.1 g/dL (12.9-16.9) 08/06/17 01:44 Hct 39.0 % (37.5-50.1) 08/06/17 01:44 MCV 89.2 fL (83.0-100.0) 08/06/17 01:44 MCH 30.0 pg (28.0-33.3) 08/06/17 01:44 MCHC 33.6 g/dL (31.6-35.5) 08/06/17 01:44 RDW 12.9 % (11.5-14.5) 08/06/17 01:44 Plt Count 258 K/mcL (140-400) 08/06/17 01:44 MPV 11.3 fL (9.4-12.4) 08/06/17 01:44 Immature Gran % 0.2 % (0-4) 08/06/17 01:44 Seg Neutrophils % 69.2 % 08/06/17 01:44 Lymphocytes % 21.0 % 08/06/17 01:44 Monocytes % 6.9 % 08/06/17 01:44 Eosinophils % 2.1 % 08/06/17 01:44 Basophils % 0.6 % 08/06/17 01:44 Neutrophils # 5.6 K/mcL (1.6-8.9) 08/06/17 01:44 Lymphocytes # 1.7 K/mcL (0.6-4.6) 08/06/17 01:44 Monocytes # 0.6 K/mcL (0.0-1.3) 08/06/17 01:44 Eosinophils # 0.2 K/mcL (0.0-0.6) 08/06/17 01:44 Basophils # 0.1 K/mcL (0.0-0.2) 08/06/17 01:44 PT 11.1 Seconds (9.4-12.1) 08/06/17 01:44 INR 1.0 08/06/17 01:44 APTT 26.7 Seconds (26.0-36.0) 08/06/17 01:44 Sodium 136 mEq/L (136-145) 08/06/17 01:44 Potassium 4.3 mEq/L (3.5-5.1) 08/06/17 01:44 Chloride 102 mEq/L (98-107) 08/06/17 01:44 Carbon Dioxide 24 mEq/L (23-29) 08/06/17 01:44 BUN 14 mg/dL (8-23) 08/06/17 01:44 Creatinine 0.94 mg/dL (0.70-1.30) 08/06/17 01:44 Est GFR ( Amer) > 60 (> 60) 08/06/17 01:44 Est GFR (Non-Af Amer) > 60 (> 60) 08/06/17 01:44 BUN/Creatinine Ratio 15 (6-26) 08/06/17 01:44 Glucose 201 mg/dL (70-105) H 08/06/17 01:44 POC Glucose 222 (58-89) H 08/07/17 07:36 Calculated Osmolality 288 (280-300) 08/06/17 01:44 Lactic Acid 1.9 mmol/L (0.5-2.2) 08/05/17 20:47 Calcium 10.0 mg/dL (8.6-10.3) 08/06/17 01:44 Total Bilirubin 0.3 mg/dL (0.3-1.0) 08/05/17 09:57 Direct Bilirubin 0.0 mg/dL (0.0-0.2) 08/05/17 09:57 Indirect Bilirubin 0.3 mg/dL (0.0-1.2) 08/05/17 09:57 AST 21 Units/L (13-39) 08/05/17 09:57 ALT 30 Units/L (7-52) 08/05/17 09:57 Alkaline Phosphatase 73 Units/L (34-104) 08/05/17 09:57 Troponin I < 0.03 ng/mL (< 0.04) 08/06/17 01:44 Serum Total Protein 7.1 g/dL (6.4-8.9) 08/05/17 09:57 Albumin 4.4 g/dL (3.5-5.7) 08/05/17 09:57 Globulin 2.7 g/dL (2.4-3.5) 08/05/17 09:57 Albumin/Globulin Ratio 1.6 (1.1-2.2) 08/05/17 09:57 Lipase 31 Units/L (11-82) 08/05/17 09:57 Urine Color Yellow (Yellow) 08/05/17 11:04 Urine Clarity Clear (Clear) 08/05/17 11:04 Urine pH 7.0 pH Units (5.0-8.0) 08/05/17 11:04 Ur Specific [place] 1.020 (1.010-1.025) 08/05/17 11:04 Urine Protein Negative mg/dL (Neg-Trace) 08/05/17 11:04 Urine Glucose (UA) 100 mg/dL (Normal) H 08/05/17 11:04 Urine Ketones Negative mg/dL (Negative) 08/05/17 11:04 Urine Blood Negative (Negative) 08/05/17 11:04 Urine Nitrite Negative (Negative) 08/05/17 11:04 Urine Bilirubin Negative (Negative) 08/05/17 11:04 Urine Urobilinogen Normal mg/dL (Normal) 08/05/17 11:04 Ur Leukocyte Esterase Negative (Negative) 08/05/17 11:04 Ur Culture Indicated? NO (NO) 08/05/17 11:04 Impressions Abdomen/Pelvis CT 08/05/17 09:50 IMPRESSION: 1. No radiographic findings to suggest presence of significant small bowel obstruction. 2. Focal area of luminal narrowing of the distal colon in the rectosigmoid region. Finding may be artifactual associated with incomplete distention of the colon however a focal stricture in this region resulting in moderate-marked distention of the colon proximal to this area cannot be excluded based on this examination. I PICC enema may be helpful for more complete evaluation. 3. Prominent fecal loading of the rectal vault. 4. Nonspecific moderate gaseous distention of the stomach as described above. D/ / 08/05/2017 11:57:21 Eren Osullivan MD / jeo Interpreting Provider: Eren Osullivan MD Chest X-Ray 08/05/17 11:14 IMPRESSION: 1. No acute cardiopulmonary disease. 2. Basilar atelectasis. D/ / 08/05/2017 12:29:20 Kimberley Dias MD / [email or web address] Interpreting Provider: Kimberley Dias MD - Imaging EKG: image reviewed (77bpm - SINUS RHYTHM WITH SINUS ARRHYTHMIA MINIMAL VOLTAGE CRITERIA FOR LVH, CONSIDER NORMAL VARIANT NONSPECIFIC T-WAVE ABNORMALITY Electronically Signed On 08-06-2017 17:18:48 EST by Mandeep Brooks DO) Anesthesia Exam Vital Signs Temp Pulse Resp BP Pulse Ox 08/07/17 12:37 97.4 F L 79 14 150/88 97 08/07/17 11:38 97.4 F L 75 14 168/92 95 08/07/17 07:05 97.5 F L 74 15 156/85 95 08/07/17 04:32 98.2 F 78 14 154/83 96 08/06/17 23:17 97.4 F L 81 14 154/88 97 08/06/17 19:23 98.7 F 81 14 128/71 96 08/06/17 14:59 97.5 F L 80 18 129/80 95 Intake and Output 08/06/17 08/07/17 08/07/17 23:59 07:59 15:59 Other: Blood Glucose* 176 222 Height: 5'10" Weight: 208# bmi = 30 - HEENT Pupil (Motor): Pupils equal, EOMI Mallampati: II Teeth: Normal Oral Opening: Greater than 3 - ORE MINER LOC: Oriented ORE MINER Motor: Normal RUE, Normal LUE, Normal RLE, Normal LLE, Normal Face ORE MINER Sensory: Normal: RUE, LUE, RLE, LLE, Face - Cardiac Rhythm: Regular Murmur: None - Pulmonary Breath Sounds: bilateral Clear Respiratory Effort: Symmetrical Anesthesia Assess/Plan ASA Score: 3 (CAD, GIB, HX of CHF) Modified Hernandez Scale for Level of Consciousness: Cooperative, oriented, and tranquil Anesthetic Plan: MAC Monitoring Plan: Standard Monitors Recovery Plan: Other Anes Supervising Prov Stmt: PT seen/evaluated, R&B DIscussed, questions answered and consent obtained. - MD Jose
[2017-08-07] MEDS ORDERED: Propofol 500 MG/50 ML INFUS..BTL ONE (13:11)
[2017-08-07] MEDS ORDERED: *HR* EPINEPHrine 1 MG/10 ML SYRINGE INTRATRACH PRN (13:20)
[2017-08-07] MEDS ORDERED: *HR* Propofol 200 MG/20 ML VIAL IVP ONE (13:27)
[2017-08-07] MEDS ORDERED: *HR* EPINEPHrine 1 MG/10 ML SYRINGE ONE (13:41)
--- NOTE | 2017-08-07 14:29 | Discharge Summary ---
Date of Encounter: 08/07/17 Time of Encounter: 09:15 - Discharge Diagnosis (1) Abdominal pain Priority: Secondary Status: Acute Comments: Patient presented to the emergency department with complaints of left lower quadrant abdominal pain that began the night prior to admission. She denies abdominal pain today. Abdomen is soft and nontender to palpation with bowel sounds present. CT abdomen on arrival showed normal narrowing in the distal colon, prominent fecal loading of the rectal vault, and nonspecific moderate gaseous distention of the stomach. Patient also reported melena for approximately 2 weeks that has resolved since. Colonoscopy today showed multiple medium mouth diverticula were found in the sigmoid colon, descending colon, and transverse colon. She is status post partial colectomy with ileocolonic anastomosis, biopsy was contraindicated due to anticoagulation. Patient has nonbleeding internal hemorrhoids, grade 2. EGD showed LA grade a esophagitis with no bleeding, therefore nonbleeding linear gastric ulcers in the greater curvature of the gastric antrum. Largest lesion was 6 mm. 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 GI recommends pt avoid NSAIDs and stay on Brilinta only. Abdomen/Pelvis CT 08/05/17 09:50 IMPRESSION: 1. No radiographic findings to suggest presence of significant small bowel obstruction. 2. Focal area of luminal narrowing of the distal colon in the rectosigmoid region. Finding may be artifactual associated with incomplete distention of the colon however a focal stricture in this region resulting in moderate-marked distention of the colon proximal to this area cannot be excluded based on this examination. I PICC enema may be helpful for more complete evaluation. 3. Prominent fecal loading of the rectal vault. 4. Nonspecific moderate gaseous distention of the stomach as described above. D/ / 08/05/2017 11:57:21 Eren Osullivan MD / joe Interpreting Provider: Eren Osullivan MD Qualifiers: Abdominal location: left lower quadrant Qualified Code(s): R10.32 - Left lower quadrant pain (2) Abnormal CT of the abdomen Priority: Secondary Status: Acute Comments: Abd pain, plan as above. Abdomen/Pelvis CT 08/05/17 09:50 IMPRESSION: 1. No radiographic findings to suggest presence of significant small bowel obstruction. 2. Focal area of luminal narrowing of the distal colon in the rectosigmoid region. Finding may be artifactual associated with incomplete distention of the colon however a focal stricture in this region resulting in moderate-marked distention of the colon proximal to this area cannot be excluded based on this examination. I PICC enema may be helpful for more complete evaluation. 3. Prominent fecal loading of the rectal vault. 4. Nonspecific moderate gaseous distention of the stomach as described above. D/ / 08/05/2017 11:57:21 Eren Osullivan MD / joe Interpreting Provider: Eren Osullivan MD (3) Melena Priority: Secondary Status: Acute Comments: Pt reports 2 week history of melena that has resolved. See EGD and colonoscopy results above. Hemoglobin has remained steady at 13.1. (4) SOB (shortness of breath) on exertion Priority: Secondary Status: Acute Comments: Patient reports 2-3 week history of shortness of breath, worsening orthopnea. He denies any cough, fever or chills, no chest pain or pressure, no chest pain. Prior history of CAD with stent placement. Lungs are clear in anterior and posterior lung overton, he is not requiring supplemental oxygen. Chest x-ray is negative. Troponins are negative 2. Hemoglobin and hematocrit are within normal limit, no peripheral edema. Chest X-Ray 08/05/17 11:14 IMPRESSION: 1. No acute cardiopulmonary disease. 2. Basilar atelectasis. D/ / 08/05/2017 12:29:20 Kimberley Dias MD / reji Interpreting Provider: Kimberley Dias MD (5) CAD (coronary artery disease) Priority: Secondary Status: Chronic Comments: Patient denies chest pain. Continue home medications. Continue aspirin, Lipitor, Brilinta. Qualifiers: Coronary Disease-Associated Artery/Lesion type: [place] artery [place] vs. transplanted heart: [place] heart Associated angina: without angina Qualified Code(s): I25.10 - Atherosclerotic heart disease of [place] coronary artery without angina pectoris (6) Diabetes mellitus Priority: Secondary Status: Chronic Comments: Chronic. Continue home medications. Continue Accu-Cheks at home. A1c was 7.1 % in January,. Qualifiers: Diabetes mellitus type: type 2 Diabetes mellitus complication status: without complication Diabetes mellitus foxpro developer insulin use: without retirement use Qualified Code(s): E11.9 - Type 2 diabetes mellitus without complications (7) HLD (hyperlipidemia) Priority: Secondary Status: Chronic Comments: Continue home medications. Qualifiers: Hyperlipidemia type: unspecified Qualified Code(s): E78.5 - Hyperlipidemia , unspecified (8) HTN (hypertension) Priority: Secondary Status: Chronic Comments: Well-controlled. Chronic. Continue home medications. Qualifiers: Hypertension type: essential hypertension Qualified Code(s): I10 - Essential (primary) hypertension (9) DVT prophylaxis Priority: Secondary Status: Acute Comments: Pt is on Brilinta. - Discharge Medications Prescriptions: Omeprazole [PriLOSEC] 40 mg PO BIDAC #60 capsule. Home Medications: Aspirin 81 mg PO DAILY 02/25/16 [History] FLUoxetine HCl [Prozac] 40 mg PO QAM 02/25/16 [History] Gabapentin [Neurontin] 800 mg PO BID 02/25/16 [History] HYDROcodone/Acet 10/325 mg [[place] 10-325 mg] 1 tab PO Q6HR PRN 02/25/16 [History ] Iron Polysaccharide Complex [Pro Fe] 180 mg PO DAILY 02/25/16 [History] Metformin HCl [Glucophage] 1,000 mg PO BID 02/25/16 [History] Pravastatin Sodium [Pravachol] 80 mg PO QPM 02/25/16 [History] Ticagrelor [Brilinta] 90 mg PO BID 02/25/16 [History] Vit C/Vit E AC/Lut/Copper/Zinc [Preservision Lutein Softgel] 1 cap PO DAILY 08/10 [History] Ramipril [Altace] 10 mg PO BID #60 capsule 05/22/16 [Rx] Bupropion HCl [Wellbutrin Xl] 300 mg PO DAILY 08/05/17 [History] Omeprazole [PriLOSEC] 40 mg PO BIDAC #60 capsule. 08/07/17 [Rx] Allergies/Adverse Reactions: 3 Allergy/AdvReac Type Severity Reaction Status Date / Time Sulfa (Sulfonamide AdvReac Hives Verified 05/21/16 12:03 Antibiotics) IV Dye AdvReac Seizure Uncoded 05/21/16 12:03 Date of admission: 08/05/17 13:30 Primary care physician: Abdiel Larsen Consults: 08/05/17 13:50 Consult to Gastroenterology [CONS] Routine Consulting Provider: Gastroenterology Mojgan Reason for Consult: LLQ abdominal pain with focal narrowing at recto-sigmoid junction on CT Time Notified: 13:52 Call Completed: No Discharging clinician: Margot Aparicio Anticipated date of discharge: 08/07/17 - Patient Status Disposition: Home, Self-Care Condition: Good Functional capacity at discharge: independent ambulation Overall status at discharge: patient is progressing back to baseline - Discharge Instructions Follow Up With: Abdiel Larsen DO [Primary Care Provider] - Additional Instructions: Follow up with your primary care provider in the next 7-10 days for a recheck. Take your medications as directed. Your new medication has been called to your pharmacy Return to the ER as needed for any other problems or concerns, or if your symptoms return or worsen. Return to your normal diet and activities as tolerated. Watch your diet, no spicy, fatty, fried foods. Eat smaller meals, more frequently. NO NSAIDS!!! This is what is causing your stomach erosions and pain. - Diet and Activity Activity: increase activity as tolerated Diet: advance to your usual diet Hospital course: Mr. Ladd is a 77 year old male - Time Spent with Patient Total time spent providing and/or coordinating discharge services: - Constitutional Vitals: Temp Pulse Resp BP Pulse Ox 97.4 F L 799 14 140/71 97 08/07/17 12:37 08/07/17 13:50 08/07/17 13:50 08/07/17 13:50 08/07/17 13:50 General appearance: Present: mild distress, A&O X 3, pleasant, answers questions appropriately. Absent: disheveled, obese, underweight, loss of weight - Head Head exam: Present: atraumatic, normal inspection, normocephalic - Eye Eye exam: Present: normal appearance, conjuntiva pink, sclera anicteric - Neck Neck exam general surgery: Present: normal inspection, supple, trachea midline. Absent: lymphadenopathy, tenderness - Respiratory Respiratory exam: Present: CTAB. Absent: accessory muscle use, rales, rhonchi, wheezes - Cardiovascular Cardiovascular exam: Present: RRR, +S1, +S2. Absent: diastolic murmur, gallop, rubs, systolic murmur - GI/Abdominal GI/Abdominal exam: Present: normal bowel sounds, soft, no peritoneal signs. Absent: distended, hepatomegaly, tenderness - Extremities Exam Extremities exam: Present: normal capillary refill, normal inspection, warm, radial pulses palpable and symmetrical. Absent: calf tenderness, cyanotic, pedal edema, tenderness - Neurological Exam Neurological exam: Present: alert, oriented X3, no focal deficits. Absent: facial droop, speech deficit - Skin Skin exam: Present: dry, intact, normal color, warm. Absent: rash
[2017-08-07 16:04] VITALS: BP 151/73
== END 2017-08-07 16:34 | disposition home or self-care (01) | DRG 384 ==
LOC: EMEROO 09:30 → 3BNU 09:30
PROVIDERS: ADMIT Student in an Organized Health Care Education/Training Program; ATTEND Registered Nurse

== ENCOUNTER 2020-01-13 13:24 | Inpatient (IN) ==
[2020-01-13 14:29] LABS: Basophils % 0.3 %; Eosinophils % 0.3 %; Hemoglobin 12.5 g/dL (12.9-16.9); Immature Granulocytes % 0.7 % (0-4); Lymphocytes # 0.7 K/mcL (0.6-4.6); Lymphocytes % 5.5 %; Mean Corpuscular HGB Conc 32.1 g/dL (31.6-35.5); Mean Corpuscular Volume 90.5 fL (83.0-100.0); Mean Platelet Volume 10.5 fL (9.4-12.4); Monocytes # 0.9 K/mcL (0.0-1.3); Monocytes % 6.4 %; Neutrophils # 11.6 K/mcL (1.6-8.9); Platelet Count 415 K/mcL (140-400); Red Blood Count 4.31 M/mcL (4.19-5.50); Red Cell Distribution Width 12.8 % (11.5-14.5); Segmented Neutrophils % 86.8 %; White Blood Count 13.3 K/mcL (4.3-11.1)
[2020-01-13] MEDS ORDERED: *HR* Propofol 200 MG/20 ML VIAL IVP ONE ×2 (14:34→17:24)
[2020-01-13] MEDS ORDERED: *HR* FentaNYL (PF) 100 MCG/2 ML VIAL IVP ONE (14:34)
[2020-01-13 14:48] LABS: BUN/Creatinine Ratio 19 (6-26); Blood Urea Nitrogen 21 mg/dL (8-23); Calcium 9.5 mg/dL (8.6-10.3); Carbon Dioxide 27 mEq/L (23-29); Chloride 96 mEq/L (98-107); Glucose 231 mg/dL (70-105); Osmolality,Calculated 286 (280-300); Potassium 4.4 mEq/L (3.5-5.1); Sodium 133 mEq/L (136-145); Troponin I < 0.03 ng/mL (< 0.04); eGFR For African Americans > 60 (> 60); eGFR For Non-African Americans > 60 (> 60)
[2020-01-13] MEDS ORDERED: Ringers Solution, Lactated 1,000 ML IVC SCH ×2 (16:00→20:13)
[2020-01-13] MEDS ORDERED: Ketorolac 15 MG/ML VIAL IVP PRN ×2 (16:00→20:13)
[2020-01-13] MEDS ORDERED: Ondansetron 4 MG/2 ML VIAL IVP PRN ×3 (16:00→20:13)
[2020-01-13] MEDS ORDERED: Naloxone 0.4 MG/ML INJ IVP PRN ×2 (16:00→20:13)
[2020-01-13] MEDS ORDERED: D5% in Water 1,000 ML IVC PRN ×2 (16:05→20:13)
[2020-01-13] MEDS ORDERED: *HR* Dextrose 50 % in Water (Vial) 50 ML VIAL IVP PRN ×2 (16:05→20:13)
[2020-01-13] MEDS ORDERED: Dextrose Gel 15 GM/37.5 ML TUBE PO PRN ×4 (16:05→20:13)
[2020-01-13 16:11] LABS: Prothrombin Time 11.4 Seconds (9.4-12.1)
[2020-01-13 16:14] LABS: Activated Partial Thrombo Time 29.8 Seconds (26.0-36.0)
[2020-01-13] MEDS ORDERED: Insulin LISPRO 300 UNITS/3 ML VIAL SQ SCH (16:30)
[2020-01-13 17:07] LABS: Bilirubin,Urine Negative (Negative); Blood,Urine Negative (Negative); Clarity,Urine Clear (Clear); Color,Urine Colorless (Yellow); Glucose,Urine (UA) >=1000 mg/dL (Normal); Ketones,Urine Trace mg/dL (Negative); Leukocyte Esterase,Urine Negative (Negative); Nitrite,Urine Negative (Negative); PH,Urine 6.5 pH Units (5.0-8.0); Protein,Urine Negative (Neg-Trace); RBC,Urine 0-3 per hpf (0-3); Specific Gravity,Urine 1.024 (1.010-1.025); Squamous Epithelial Cell,Urine Few per hpf (None-Few); Urobilinogen,Urine Normal (Normal)
[2020-01-13] MEDS ORDERED: *HR* HYDROmorphone (PF) 1 MG/ML SYRINGE IVP PRN (17:20)
[2020-01-13] MEDS ORDERED: *HR* Labetalol 20 MG/4 ML SYRINGE IVP PRN (17:20)
[2020-01-13] MEDS ORDERED: *HR* Promethazine 25 MG/ML VIAL IVP PRN (17:20)
[2020-01-13] MEDS ORDERED: Lidocaine -MPF 2% 2 ML VIAL ONE ×2 (17:24→17:25)
[2020-01-13] MEDS ORDERED: *HR* FentaNYL (PF) 100 MCG/2 ML VIAL ONE ×2 (17:24→18:00)
[2020-01-13] MEDS ORDERED: Ondansetron 4 MG/2 ML VIAL ONE (17:24)
[2020-01-13] MEDS ORDERED: Dexamethasone 4 MG/ML VIAL ONE (17:24)
[2020-01-13] MEDS ORDERED: Famotidine 20 MG/2 ML VIAL ONE (17:34)
[2020-01-13] MEDS ORDERED: *HR* PHENYLEPHRINE 1,000 MCG/10 ML SYRINGE IVP ONE (17:52)
[2020-01-13] MEDS ORDERED: *HR* Heparin 5,000 UNIT/ML VIAL SQ SCH (18:00)
[2020-01-13] MEDS ORDERED: Gabapentin 400 MG CAPSULE PO SCH (21:00)
[2020-01-13] MEDS: Gabapentin 400 MG CAPSULE PO SCH (21:42)
[2020-01-14] MEDS ORDERED: Insulin LISPRO 300 UNITS/3 ML VIAL SQ ONE (02:08)
[2020-01-14 02:38] LABS: Basophils % 0.3 %; Hematocrit 33.9 % (37.5-50.1); Immature Granulocytes % 0.5 % (0-4); Lymphocytes # 0.5 K/mcL (0.6-4.6); Lymphocytes % 4.4 %; Mean Corpuscular HGB Conc 32.2 g/dL (31.6-35.5); Mean Corpuscular Hemoglobin 29.6 pg (28.0-33.3); Mean Corpuscular Volume 92.1 fL (83.0-100.0); Mean Platelet Volume 11.1 fL (9.4-12.4); Monocytes # 0.6 K/mcL (0.0-1.3); Monocytes % 5.8 %; Neutrophils # 9.4 K/mcL (1.6-8.9); Platelet Count 343 K/mcL (140-400); Red Blood Count 3.68 M/mcL (4.19-5.50); Red Cell Distribution Width 13.1 % (11.5-14.5); White Blood Count 10.6 K/mcL (4.3-11.1)
[2020-01-14 02:40] LABS: Hemoglobin 10.9 g/dL (12.9-16.9)
[2020-01-14 02:57] LABS: BUN/Creatinine Ratio 20 (6-26); Blood Urea Nitrogen 21 mg/dL (8-23); Calcium 8.5 mg/dL (8.6-10.3); Carbon Dioxide 22 mEq/L (23-29); Chloride 100 mEq/L (98-107); Glucose 343 mg/dL (70-105); Osmolality,Calculated 293 (280-300); Potassium 4.4 mEq/L (3.5-5.1); Sodium 133 mEq/L (136-145); eGFR For African Americans > 60 (> 60); eGFR For Non-African Americans > 60 (> 60)
[2020-01-14] MEDS: *HR* Heparin 5,000 UNIT/ML VIAL SQ SCH ×2 (05:10→20:07)
[2020-01-14] MEDS ORDERED: BuPROPion XL (24 HR) 150 MG TABLET PO SCH (09:00)
[2020-01-14] MEDS ORDERED: FLUoxetine 20 MG CAPSULE PO SCH (09:00)
[2020-01-14] MEDS ORDERED: Aspirin 81 MG TAB.CHEW PO SCH (09:00)
[2020-01-14] MEDS: FLUoxetine 20 MG CAPSULE PO SCH (09:57)
[2020-01-14] MEDS: Aspirin 81 MG TAB.CHEW PO SCH (09:58)
[2020-01-14] MEDS: Gabapentin 400 MG CAPSULE PO SCH ×2 (09:59→20:08)
[2020-01-14] MEDS: Insulin LISPRO 300 UNITS/3 ML VIAL SQ SCH ×3 (10:00→20:45)
[2020-01-14] MEDS: BuPROPion XL (24 HR) 150 MG TABLET PO SCH (10:05)
[2020-01-15 05:18] LABS: Basophils # 0.1 K/mcL (0.0-0.2); Basophils % 0.4 %; Eosinophils % 0.2 %; Hematocrit 34.5 % (37.5-50.1); Hemoglobin 10.9 g/dL (12.9-16.9); Immature Granulocytes % 0.4 % (0-4); Lymphocytes # 0.9 K/mcL (0.6-4.6); Lymphocytes % 8.1 %; Mean Corpuscular HGB Conc 31.6 g/dL (31.6-35.5); Mean Corpuscular Hemoglobin 29.5 pg (28.0-33.3); Mean Corpuscular Volume 93.2 fL (83.0-100.0); Mean Platelet Volume 11.1 fL (9.4-12.4); Monocytes # 1.2 K/mcL (0.0-1.3); Monocytes % 10.7 %; Neutrophils # 9.3 K/mcL (1.6-8.9); Platelet Count 306 K/mcL (140-400); Red Cell Distribution Width 13.2 % (11.5-14.5); Segmented Neutrophils % 80.2 %; White Blood Count 11.6 K/mcL (4.3-11.1)
[2020-01-15 05:35] LABS: BUN/Creatinine Ratio 20 (6-26); Blood Urea Nitrogen 19 mg/dL (8-23); Calcium 8.7 mg/dL (8.6-10.3); Carbon Dioxide 24 mEq/L (23-29); Chloride 99 mEq/L (98-107); Glucose 197 mg/dL (70-105); Osmolality,Calculated 282 (280-300); Potassium 4.3 mEq/L (3.5-5.1); Sodium 132 mEq/L (136-145); eGFR For African Americans > 60 (> 60); eGFR For Non-African Americans > 60 (> 60)
[2020-01-15] MEDS: *HR* Heparin 5,000 UNIT/ML VIAL SQ SCH ×2 (06:26→16:09)
[2020-01-15] MEDS: Aspirin 81 MG TAB.CHEW PO SCH (08:08)
[2020-01-15] MEDS: FLUoxetine 20 MG CAPSULE PO SCH (08:08)
[2020-01-15] MEDS: Gabapentin 400 MG CAPSULE PO SCH (08:09)
[2020-01-15] MEDS: BuPROPion XL (24 HR) 150 MG TABLET PO SCH (08:09)
[2020-01-15] MEDS: Insulin LISPRO 300 UNITS/3 ML VIAL SQ SCH ×3 (08:13→16:52)
[2020-01-15] MEDS ORDERED: cephALEXin 500 MG CAPSULE PO SCH (10:30)
[2020-01-15 12:36] LABS: Adenovirus Not Detected (Not Detect); Bordetella Pertussis Not Detected (Not Detect); Chlamydophila pneumoniae Not Detected (Not Detect); Coronavirus 229E Not Detected (Not Detect); Coronavirus HKU1 Not Detected (Not Detect); Coronavirus NL63 Not Detected (Not Detect); Coronavirus OC43 Not Detected (Not Detect); Human Metapneumovirus Not Detected (Not Detect); Human Rhinovirus/Enterovirus Not Detected (Not Detect); Influenza A Subtype 2009 H1 Not Detected (Not Detect); Influenza B Not Detected (Not Detect); Mycoplasma pneumoniae Not Detected (Not Detect); Parainfluenza Virus 1 Not Detected (Not Detect); Parainfluenza Virus 2 Not Detected (Not Detect); Parainfluenza Virus 3 Not Detected (Not Detect); Parainfluenza Virus 4 Not Detected (Not Detect); Respiratory Syncytial Virus Not Detected (Not Detect)
[2020-01-15 12:38] LABS: SARS-CoV-2 Not Detected (Not Detect)
[2020-01-15] MEDS ORDERED: Gabapentin 400 MG CAPSULE PO SCH (15:00)
[2020-01-15 15:27] VITALS: BP 122/63
[2020-01-16] MEDS ORDERED: FLUoxetine 20 MG CAPSULE PO SCH (09:00)
[2020-01-16] MEDS ORDERED: BuPROPion XL (24 HR) 150 MG TABLET PO SCH (09:00)
== END 2020-01-15 17:54 | DRG 494 ==
LOC: EMEROOARM 13:24 → SUATTDRO 16:10 → 3NENU 16:10
PROVIDERS: ADMIT Internal Medicine; ATTEND Internal Medicine